=== PATIENT | female | born 1990 | race Caucasian/White ===

== ENCOUNTER 2018-02-04 16:50 | Emergency (ER) | payer OTHER ==
[~2018-02-04] VITALS: Ht 167.6 cm; Wt 99.8 kg
[~2018-02-04 16:50] MED LIST: AMOX/CLAV POT 81 TAB PO; ZOFRAN ODT4 MG SL
--- NOTE | 2018-02-04 17:32 | ED NECK/BACK PAIN COMPLAINT ---
History of Present Illness General Chief Complaint: Low Back Pain/Injury Stated Complaint: BACK PAIN Source: patient Exam Limitations: no limitations Vital Signs & Intake/Output Vital Signs & Intake/Output Vital Signs Date Time Temp Pulse Resp B/P B/P Pulse O2 O2 Flow FiO2 Mean Ox Delivery Rate 02/04 1655 98.2 79 18 129/86 97 Room Air Allergies Coded Allergies: NO KNOWN ALLERGIES (08/09/14) Reconcile Medications AMOXICILLIN/POTASSIUM CLAV (Amox-Clav 875-125 MG Tablet) 875 MG-125 MG TABLET 1 TAB PO BID INFECTION (Reported) Cyclobenzaprine HCl 10 MG TABLET 1 TAB PO QPM MUSCLE RELAXOR Meloxicam (Mobic) 15 MG TABLET 1 TAB PO DAILY PRN PAIN Ondansetron (Zofran Odt) 4 MG TAB.RAPDIS 1 TAB SL Q8HR PRN NAUSEA Tylenol With Codeine (Tylenol With Codeine #3 Tablet) 300 MG-30 MG TABLET 1 TAB PO BIDP PRN PAIN Triage Note: PT TO ER C/C LOW BACK PAIN X 2 DAY, THINKS MAY HAVE PULLED A MUSCLE. DENIES URINARY S/S Triage Nurses Notes Reviewed? 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 Patient denies any radiating pain down the extremities or to the abdomen or groin. Patient has been taking Tylenol with no relief of symptoms. States that lumbar spine movements make worse. Denies any fever or chills abdominal pain nausea vomiting dysuria hematuria vaginal bleeding or discharge. Denies any saddle paresthesia bowel bladder incontinence (Nba Caceres) Past History Travel History Traveled to [place] past 21 day No Medical History Any Pertinent Medical History? see below for history Psychiatric: depression Surgical History Surgical History: non-contributory Psychosocial History What is your primary language Uzbek Tobacco Use: Never used Family History Hx Contributory? No (Nba Caceres) Review of Systems Review of Systems Constitutional: Reports: no symptoms. Eyes: Reports: no symptoms. Ears, Nose, Throat, Mouth: Reports: no symptoms. Respiratory: Reports: no symptoms. Cardiovascular: Reports: no symptoms. Gastrointestinal/Abdominal: Reports: no symptoms. Musculoskeletal: Reports: see HPI, back pain, muscle pain, muscle stiffness. Skin: Reports: no symptoms. Neurological/Psychological: Reports: no symptoms. All Other Systems: Reviewed and Negative (Nba Caceres) Physical Exam Physical Exam General Appearance: no apparent distress, alert, comfortable Head: atraumatic Eyes: Bilateral: normal appearance. Ears, Nose, Throat, Mouth: moist mucous membrane Neck: normal inspection, full range of motion Respiratory: no respiratory distress Neurologic/Psych: no motor/sensory deficits, awake, alert, oriented x 3, normal gait Skin: intact, normal color, warm/dry Comments: Bilateral lower extremities myotomes dermatomes DTRs intact Lumbar spine, normal inspection right lateral muscular point tenderness no central spinous tenderness decreased active range of motion noted Core Measures CVA/TIA Diagnosis: No (Nba Caceres) Progress Differential Diagnosis: C spine injury, carotid dissection, cauda equina syn, herniated disc, myofascial strain, pyelo/UTI, sciatica, spinal cord inj, thoracic outlet syn, T/L spine injury, ureterolithiasis Plan of Care: Orders Procedure Date/time Status URINE 02/04 1651 Complete URINALYSIS 02/04 1651 Complete Laboratory Tests 02/04/18 1718: Urine Color YEL, Urine Clarity HAZY H, Urine pH 6.0, Ur Specific [place] >= 1.030, Urine Protein NEG, Urine Ketones NEG, Urine Nitrite NEG, Urine Bilirubin NEG, Urine Urobilinogen 0.2, Ur Leukocyte Esterase NEG, Ur Microscopic SEDIMENT EXAMINED, Urine RBC 1-3, Urine WBC 3-5 H, Ur Epithelial Cells MANY H, Urine Bacteria MANY H, Urine Mucus FEW, Urine Hemoglobin MOD H, Urine Glucose NEG, Urine Test NEGATIVE Although differential diagnosis does include kidney stone or UTI patient denies any abdominal pain dysuria hematuria vaginal bleeding or discharge. Due to history of present illness and exam findings patient has reproducible pain upon lumbar spine movements no central spine NEXUS Criteria 0 (Nba Caceres) Departure Departure Disposition: HOME OR SELF CARE Condition: Stable Clinical Impression Primary Impression: Low back strain Referrals: Jimmie Farris MD (PCP/Family) Additional Instructions: As discussed begin icing the area directly 20 minutes every 2 hours, Begin the prescription meloxicam for pain and a prescription of Tylenol with codeine for breakthrough pain and the prescription of cyclobenzaprine for muscle relaxation, prescription is waiting at [facility]. If symptoms worsen return to emergency room, if no better in one week follow-up with her doctor Departure Forms: Customer Survey General Discharge Information Prescriptions: Current Visit Scripts Meloxicam (Mobic) 1 TAB PO DAILY PRN PAIN #7 TAB Cyclobenzaprine HCl 1 TAB PO QPM #5 TAB Tylenol With Codeine (Tylenol With Codeine #3 Tablet) 1 TAB PO BIDP PRN PAIN #6 TAB (Nba Caceers) PA/CORE EXTRUDER Co-Sign Statement Statement: ED Attending supervision documentation- I saw and evaluated the patient. I have also reviewed all the pertinent lab results and diagnostic results. I agree with the findings and the plan of care as documented in the PA's/CORE EXTRUDER's documentation. x I have reviewed the ED Record and agree with the PA's/CORE EXTRUDER's documentation. [] Additions or exceptions (if any) to the PAs/CORE EXTRUDER's note and plan are summarized below: [] (Efrain MONDRAGON,Chandrakant)
[2018-02-04] MEDS ORDERED: TYLENOL WITH C1 EACH PO (17:49)
[2018-02-04] MEDS ORDERED: CYCLOBENZAPRINE10 M1 PO (17:49)
[2018-02-04] MEDS ORDERED: MOBIC15 M1 PO (17:49)
[2018-02-04 19:22] VITALS: BP 124/80
== END 2018-02-04 19:22 ==
LOC: ERH 16:50
DX: S39.012A Strain of muscle, fascia and tendon of lower back, initial encounter (principal); X58.XXXA Exposure to other specified factors, initial encounter; Y92.009 Unspecified place in unspecified non-institutional (private) residence as the place of occurrence of the external cause; Y93.9 Activity, unspecified
CPT/HCPCS: 81001; 81025

== ENCOUNTER 2018-02-05 18:51 | Emergency (ER) | payer OTHER ==
[~2018-02-05 18:51] MED LIST changes: +CYCLOBENZAPRINE10 M1 PO; +MOBIC15 M1 PO; +TYLENOL WITH C1 EACH PO
== END 2018-02-05 19:00 | disposition admitted as inpatient to this hospital (09) ==
LOC: ERH 18:51
DX: L50.0 Allergic urticaria (principal)